=== PATIENT | female | born 1995 | race African-American/Black ===

== ENCOUNTER 2016-12-27 19:35 | Emergency (ER) | payer OTHER ==
[~2016-12-27] VITALS: Ht 160 cm; Wt 61.7 kg
[2016-12-27] MEDS ORDERED: FLUCONAZOLE 50MG TABLET PO ONE (21:30)
[2016-12-27 21:42] VITALS: BP 127/75
== END 2016-12-27 22:01 | disposition home or self-care (01) ==
LOC: M ED 21:40
DX: B37.3 Candidiasis of vulva and vagina (principal); Z11.3 Encounter for screening for infections with a predominantly sexual mode of transmission

== ENCOUNTER 2017-04-01 22:44 | Emergency (ER) | payer OTHER ==
[~2017-04-01] VITALS: Ht 160 cm; Wt 59.1 kg
[2017-04-01] MEDS ORDERED: VITA500T PO (22:54)
[2017-04-01] MEDS ORDERED: FERR1TAB8 PO (22:54)
[2017-04-02 01:07] VITALS: BP 128/68
== END 2017-04-02 01:09 | disposition home or self-care (01) ==
LOC: M ED 22:44
DX: S40.812A Abrasion of left upper arm, initial encounter (principal); T50.B15A Adverse effect of smallpox vaccines, initial encounter; Y92.89 Other specified places as the place of occurrence of the external cause; Y99.8 Other external cause status; Y93.89 Activity, other specified

== ENCOUNTER 2017-12-02 11:33 | Outpatient (CLI) | payer OTHER | END 2017-12-02 13:55 | disposition home or self-care (01) | LOC: M LDO 11:33 | DX: O47.03 False labor before 37 completed weeks of gestation, third trimester (principal); Z3A.36 36 weeks gestation of pregnancy; O99.343 Other mental disorders complicating pregnancy, third trimester; F32.9 Major depressive disorder, single episode, unspecified | CPT/HCPCS: 76815 ==

== ENCOUNTER 2017-12-29 06:01 | Inpatient (IN) | payer OTHER ==
[2017-12-29] MEDS: LR 1,000 ML IV ×4 (06:33→17:33)
[2017-12-29 06:55] LABS: HEMATOCRIT 36.3 % (36.0-47.0); HEMOGLOBIN 12.2 g/dl (12.0-15.5); MEAN CORPUSCULAR HEMOGLOBIN 27.2 pg (27.0-33.0); MEAN CORPUSCULAR HGB CONC 33.6 g/dl (32.0-36.5); MEAN CORPUSCULAR VOLUME 80.8 fl (80.0-96.0); PLATELET COUNT, AUTOMATED 216 10^3/uL (150-450); RED BLOOD COUNT 4.49 10^6/uL (4.00-5.40); RED CELL DISTRIBUTION WIDTH 14.1 % (11.5-14.5); WHITE BLOOD COUNT 17.9 10^3/uL (4.0-10.0)
[2017-12-29 07:27] LABS: AMPHETAMINES URINE REFLEX NEGATIVE (NEGATIVE); BARBITURATES URINE REFLEX NEGATIVE (NEGATIVE); BENZODIAZEPINES URINE REFLEX NEGATIVE (NEGATIVE); CANNABINOIDS URINE REFLEX NEGATIVE (NEGATIVE); COCAINE METABOLITE URINE REFLE NEGATIVE (NEGATIVE); METHADONE URINE REFLEX NEGATIVE (NEGATIVE); OPIATES URINE REFLEX NEGATIVE (NEGATIVE); PHENCYCLIDINE URINE REFLEX NEGATIVE (NEGATIVE)
[2017-12-29] MEDS ORDERED: FENTANYL 2MCG/ML ROPIVACAINE 0.2% IN 0.9% NACL 200ML IVBAG As Ordered (07:45)
[2017-12-29] MEDS: FENTANYL/ROPIVACAINE/NACL BAG 200 ML EPIDURAL (10:00)
[2017-12-29] MEDS ORDERED: LACTATED RINGER'S 1000 ML IV (10:00)
[2017-12-29] MEDS ORDERED: EPIDURAL/PCA KEYS XX (10:00)
[2017-12-29] MEDS ORDERED: ONDANSETRON 4MG/2ML VIAL (J2405) IV ×2 (10:00→21:00)
[2017-12-29] MEDS ORDERED: ePHEDrine SULFATE 25 MG/5 ML(5MG/ML) SYRINGE IV (10:00)
[2017-12-29] MEDS ORDERED: REFRIGERATOR IV KEYS XX (10:00)
[2017-12-29] MEDS ORDERED: EPIDURAL COMMENT XX (10:00)
[2017-12-29] MEDS ORDERED: diphenhydrAMINE INJ 50MG/ML VIAL (J1200) IV (10:00)
[2017-12-29] MEDS ORDERED: NALOXONE INJ 0.4 MG/1 ML VIAL (J2310) IV (10:00)
[2017-12-29] MEDS: OXYTOCIN DRIP 30 UNITS in APPROPRIATE DILUENT 1 EA IV (10:33)
[2017-12-29 20:55] LABS: CORD GAS ABE V -6.5; CORD GAS HCO3 V 19.1 MEQ/L; CORD GAS O2 SAT V 82.8 %; CORD GAS PCO2 V 38.4 mmHg; CORD GAS PH V 7.315 UNITS; CORD GAS PO2 V 40.2 mmHg; CORD GAS SBC V 18.9 MEQ/L; CORD GAS TCO2 V 20.3 MEQ/L
[2017-12-29] MEDS: LIDOCAINE 1% MDV 20ML VIAL INFIL (21:00)
[2017-12-29] MEDS ORDERED: METHYLERGONOVINE MALEATE 0.2 MG TAB PO (21:00)
[2017-12-29] MEDS ORDERED: MEASLES,MUMPS,RUBELLA VACCINE INJ (MMR-II) (90707) SC (21:00)
[2017-12-29] MEDS ORDERED: MOM 30ML SUSPENSION UDC PO (21:00)
[2017-12-29] MEDS ORDERED: RHOGAM 300 MCG (1500 IU) INJ (J2790) IM (21:00)
[2017-12-29] MEDS ORDERED: PROMETHAZINE 25 MG TAB PO (21:00)
[2017-12-29] MEDS: IBUPROFEN 800 MG TAB PO (22:16)
[2017-12-30] MEDS: FENTANYL/ROPIVACAINE/NACL BAG 200 ML EPIDURAL (00:10)
[2017-12-30] MEDS: DOCUSATE SODIUM 100 MG CAP PO (01:10)
[2017-12-30] MEDS: DIBUCAINE 1% OINTMENT 30GM TOP (01:10)
[2017-12-30] MEDS: LR 1,000 ML IV ×3 (01:33→20:13)
[2017-12-30] MEDS: ACETAMINOPHEN 500 MG TAB PO (17:31)
[2017-12-30] MEDS: IBUPROFEN 800 MG TAB PO (18:23)
[2017-12-30] MEDS: PRENATAL VITAMINS CHEWABLE TABLET PO (21:07)
[2017-12-31] MEDS: PRENATAL VITAMINS CHEWABLE TABLET PO (09:00)
[2017-12-31] MEDS: IBUPROFEN 800 MG TAB PO ×2 (09:03→23:24)
[2018-01-01] MEDS: PRENATAL VITAMINS CHEWABLE TABLET PO (09:27)
== END 2018-01-01 14:30 | disposition home or self-care (01) | DRG 775 ==
LOC: M LDO 06:01 → M OBS 12-31 15:57 → M LDI 06:36 → M OBS 23:38
PROVIDERS: Obstetrics & Gynecology
PROC: 10D07Z6 Extraction of Products of Conception, Vacuum, Via Natural or Artificial Opening (ICD-10-PCS; principal; 2017-12-29)
PROC: 0KQM0ZZ Repair Perineum Muscle, Open Approach (ICD-10-PCS; 2017-12-29)
DX: O48.0 Post-term pregnancy (principal); Z37.0 Single live birth; Z3A.40 40 weeks gestation of pregnancy; O75.81 Maternal exhaustion complicating labor and delivery; O76 Abnormality in fetal heart rate and rhythm complicating labor and delivery; O77.0 Labor and delivery complicated by meconium in amniotic fluid; O70.1 Second degree perineal laceration during delivery

== ENCOUNTER 2018-01-30 19:11 | Emergency (ER) | payer OTHER | END 2018-01-30 21:47 | disposition home or self-care (01) | LOC: M ED 19:11 | DX: N93.9 Abnormal uterine and vaginal bleeding, unspecified (principal); R10.2 Pelvic and perineal pain; S31.41XD Laceration without foreign body of vagina and vulva, subsequent encounter; X58.XXXD Exposure to other specified factors, subsequent encounter | CPT/HCPCS: 99283 ==

== ENCOUNTER 2018-10-08 14:14 | Emergency (ER) | payer OTHER ==
[~2018-10-08] VITALS: Ht 160 cm; Wt 61.4 kg
[2018-10-08 14:14] VITALS: BP 149/73
[~2018-10-08 14:14] MED LIST: COLA100C5 PO; FERR1TAB8 PO; IBUP-1114 PO; MAPA500T2 PO; POLY33503; PRENTAB9 PO; VITA500T PO
[2018-10-08] MEDS ORDERED: BACT2CRE TOP (14:28)
== END 2018-10-08 14:37 | disposition home or self-care (01) ==
LOC: M ED 14:14
DX: L01.01 Non-bullous impetigo (principal)